=== PATIENT | female | born 2000 | race Caucasian/White ===

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

== ENCOUNTER 2024-11-20 17:12 | Emergency (ER) | payer MEDICAID, OTHER ==
[~2024-11-20] VITALS: Ht 157.5 cm; Wt 84.0 kg
[~2024-11-20 17:12] MED LIST changes: -MONT5TAB16; +MONT5TAB25
[2024-11-20 17:24] VITALS: O2SAT 99
[2024-11-20 17:27] VITALS: TEMP 36.9; O2SAT 100
[2024-11-20 19:04] LABS: BASOPHILS % 1.4 % (0.0-2.0); DIFFERENTIAL COMMENT 0; EOSINOPHILS % 6.5 % (0.0-5.0); HEMATOCRIT. 32.4 % (36.0-48.0); HEMOGLOBIN. 10.2 g/dL (12.0-16.0); LYMPHOCYTES % 30.4 % (20.0-50.0); MEAN CORPUSCULAR HEMOGLOBIN 22.8 pg (28.0-32.0); MEAN CORPUSCULAR HGB CONC 31.5 g/dL (31.0-37.0); MEAN CORPUSCULAR VOLUME 72.5 fL (81.0-99.0); MEAN PLATELET VOLUME 7.6 fl (7.4-10.4); MONOCYTES % 5.9 % (2.0-8.0); NEUTROPHILS % 55.8 % (40.0-76.0); PLATELET 431 x1000/uL (130-400); RED BLOOD CELL COUNT 4.47 mill/uL (4.2-5.4); RED CELL DISTRIBUTION WIDTH 16.1 % (11.6-14.6); WHITE BLOOD COUNT 5.8 x1000/uL (4.5-11.0)
[2024-11-20 19:17] LABS: CHLORIDE 106 mEq/L (98-107); POTASSIUM 3.8 mEq/L (3.5-5.1); SODIUM 143 mEq/L (136-145)
[2024-11-20 19:18] LABS: CARBON DIOXIDE 27 mEq/L (21-32)
[2024-11-20 19:19] LABS: CALCIUM 8.9 mg/dL (8.7-10.4)
[2024-11-20 19:22] LABS: PROTHROMBIN TIME 10.6 sec (9.6-11.0)
[2024-11-20 19:23] LABS: CREATININE 0.7 mg/dL (0.6-1.0); GLUCOSE 102 mg/dL (70-105); UREA NITROGEN BLOOD 7 mg/dL (9-23)
[2024-11-20 22:38] LABS: ALANINE AMINOTRANSFERASE 18 IU/L (10-49); ALBUMIN 4.4 g/dL (3.2-4.8); ASPARTATE AMINOTRANSFERASE 18 IU/L (<34); BILIRUBIN DIRECT < 0.1 mg/dL (<=3.0); BILIRUBIN TOTAL 0.2 mg/dL (0.1-1.0); PROTEIN TOTAL 7.2 g/dL (6.0-8.3)
[2024-11-20 22:40] LABS: HCG SCREEN NEGATIVE
[2024-11-20 22:45] LABS: CLARITY URINE CLOUDY (CLEAR); COLOR URINE YELLOW (YELLOW); GLUCOSE URINE NEGATIVE (NEGATIVE); KETONES URINE TRACE (NEGATIVE); LEUKOCYTE ESTERASE URINE 3+ (NEGATIVE); NITRITE URINE NEGATIVE (NEGATIVE); OCCULT BLOOD URINE NEGATIVE (NEGATIVE); PH URINE 5.5 (4.5-8.0); PROTEIN URINE NEGATIVE (NEGATIVE); SPECIFIC GRAVITY URINE 1.023 (1.005-1.030)
[2024-11-20 23:20] LABS: BACTERIA URINE 2+; RBC URINE 0-2 /hpf (0-2); SQUAMOUS EPITHELIAL CELL URINE 3+ /lpf (RARE/1+)
[2024-11-20 23:21] LABS: WBC URINE 15-25 /hpf (0-2)
[2024-11-21] MEDS ORDERED: CEPH500C2 MT (00:24)
[2024-11-21] MEDS: CEFTRIAXONE SODIUM 1G VIAL IM ONE (00:30)
[2024-11-21 01:00] VITALS: BP 139/77; PULSE 89; RESP 18
[2024-11-21] MEDS: KETOROLAC 30MG/ML VIAL IM ONE (01:00)
[2024-11-21] MEDS: LIDOCAINE HCL 1% 20ML VIAL INFIL ONE (01:00)
== END 2024-11-21 01:10 | disposition home or self-care (01) ==
LOC: ER 17:12
DX: N39.0 Urinary tract infection, site not specified (principal)
CPT/HCPCS: 99285; 74176; 76856; 80076; 80048; 81003; 81025; 84703; 83690; 85025; 85610; 87086; 36415; 96372; J1885